=== PATIENT | male | born 1985 | race Caucasian/White ===

== ENCOUNTER 2017-10-20 07:17 | Emergency (ER) | payer BC, OTHER, MEDICAID ==
[2017-10-20] MEDS: LORAZEPAM 1 MG TAB PO (08:19)
[2017-10-20] MEDS: ONDANSETRON (ODT) 4 MG TAB ODT (08:28)
[2017-10-20] MEDS: LIDOCAINE/MYLANTA 40 ML BTL PO (08:53)
== END 2017-10-20 10:07 | disposition home or self-care (01) ==
LOC: FTE 07:17
DX: R07.89 Other chest pain (principal); F15.10 Other stimulant abuse, uncomplicated; R11.0 Nausea; Z87.891 Personal history of nicotine dependence
CPT/HCPCS: 71045; 93005; 99284-25

== ENCOUNTER 2017-12-12 19:30 | Emergency (ER) | payer BC ==
[2017-12-13 01:15] LABS: ADD MAN DIFF? NO
[2017-12-13 01:17] LABS: BASOPHIL # 0.1 10^3/ul (0.0-0.1); BASOPHILS % 0.6 % (0.0-2.0); EOSINOPHILS % 0.4 % (0.0-7.0); HEMATOCRIT 46.3 % (42.0-52.0); HEMOGLOBIN 16.5 g/dl (14.0-18.0); LYMPHOCYTES # 1.3 10^3/ul (0.8-2.9); MEAN CORPUSCULAR HEMOGLOBIN 31.5 pg (29.0-33.0); MEAN CORPUSCULAR HGB CONC 35.6 g/dl (32.0-37.0); MEAN CORPUSCULAR VOLUME 88.5 fl (82.0-101.0); MEAN PLATELET VOLUME 8.8 fl (7.4-10.4); MONOCYTE # 0.9 10^3/ul (0.3-0.9); MONOCYTES % 10.4 % (0.0-11.0); NEUTROPHIL # 6.6 10^3/ul (1.6-7.5); NEUTROPHILS % 73.3 % (39.0-77.0); PLATELET COUNT 275 10^3/UL (140-415); RED BLOOD COUNT 5.23 10^6/ul (4.70-6.10)
[2017-12-13] MEDS: SOD CHLORIDE 0.9% 1,000 ML IV (01:27)
[2017-12-13] MEDS: HYDROmorphONE 1 MG/ML SYG IV (01:27)
[2017-12-13] MEDS: ONDANSETRON 4 MG INJ IV (01:27)
[2017-12-13 01:32] LABS: ADD UMIC YES; UR ASCORBIC ACID NEGATIVE (NEGATIVE); UR BACTERIA FEW /HPF (NONE SEEN); UR BILIRUBIN (Dip) NEGATIVE (NEGATIVE); UR BLOOD (Dip) NEGATIVE (NEGATIVE); UR CLARITY CLEAR (CLEAR); UR COLOR YELLOW (YELLOW); UR GLUCOSE (Dip) NEGATIVE (NEGATIVE); UR KETONES (Dip) NEGATIVE (NEGATIVE); UR LEUKOCYTE ESTERASE (Dip) NEGATIVE Leu/ul (NEGATIVE); UR MUCUS MODERATE /HPF (NONE SEEN); UR NITRITE (Dip) NEGATIVE (NEGATIVE); UR RBC 2 /HPF (0-5); UR SPECIFIC GRAVITY (Dip) 1.025 (1.003-1.030); UR TOTAL PROTEIN (Dip) 2+ mg/dl (NEGATIVE); UR UROBILINOGEN (Dip) NEGATIVE (NEGATIVE); UR WBC 1 /HPF (0-5)
[2017-12-13 01:38] LABS: ALANINE AMINOTRANSFERASE 52 IU/L (13-69); ALBUMIN 5.4 g/dl (3.3-4.9); ALBUMIN/GLOBULIN RATIO 1.35; ALKALINE PHOSPHATASE 95 IU/L (42-121); ANION GAP 23 (8-16); ASPARTATE AMINO TRANSFERASE 39 IU/L (15-46); BILIRUBIN,INDIRECT 0.5 mg/dl (0-1.1); BILIRUBIN,TOTAL 0.5 mg/dl (0.2-1.3); BLOOD UREA NITROGEN 15 mg/dl (7-20); CALCIUM 10.5 mg/dl (8.4-10.2); CARBON DIOXIDE 28 mmol/L (21-31); CHLORIDE 98 mmol/L (97-110); CREATININE 0.89 mg/dl (0.61-1.24); GLUCOSE 116 mg/dl (70-220); LIPASE 135 U/L (23-300); POTASSIUM 4.4 mmol/L (3.5-5.1); SODIUM 145 mmol/L (135-144); TOTAL PROTEIN 9.4 g/dl (6.1-8.1)
[2017-12-13 02:04] LABS: COCAINE Negative (NEGATIVE)
[2017-12-13 02:34] LABS: BARBITURATES Negative (NEGATIVE); BENZODIAZEPINES Negative (NEGATIVE); CANNABINOIDS Negative (NEGATIVE); OPIATES Negative (NEGATIVE)
[2017-12-13 02:53] LABS: AMPHETAMINE/METHAMPHETAMINE Positive (NEGATIVE)
== END 2017-12-13 02:34 | disposition home or self-care (01) ==
LOC: FTE 19:30
DX: R10.84 Generalized abdominal pain (principal); R11.10 Vomiting, unspecified; R19.7 Diarrhea, unspecified
CPT/HCPCS: 36415; 74176; 80053; 80307; 81001; 83690; 85025; 96374; 96375; 99285-25

== ENCOUNTER 2018-06-16 06:07 | Emergency (ER) | payer BC ==
[2018-06-16] MEDS: LORAZEPAM 1 MG TAB PO (06:41)
[2018-06-16] MEDS: SOD CHLORIDE 0.9% 1,000 ML IV (06:42)
== END 2018-06-16 07:37 | disposition home or self-care (01) ==
LOC: FTE 06:07
DX: F41.9 Anxiety disorder, unspecified (principal); F14.10 Cocaine abuse, uncomplicated; F17.210 Nicotine dependence, cigarettes, uncomplicated
CPT/HCPCS: 93005; 99284-25